=== PATIENT | male | born 1965 | race Hispanic/Latino ===

== ENCOUNTER 2020-08-05 09:19 | Emergency (ER) | payer OTHER ==
[~2020-08-05] VITALS: Ht 162.6 cm; Wt 65.0 kg
[2020-08-05] MEDS ORDERED: BP (10:07)
[2020-08-05] MEDS ORDERED: DIABETIC MED (10:08)
[2020-08-05] MEDS ORDERED: OFLOXACIN0.3 % OS (10:18)
[2020-08-05 10:30] VITALS: BP 131/77
== END 2020-08-05 10:30 | disposition home or self-care (01) | DRG 125 ==
LOC: ED 09:19
DX: S05.02XA Injury of conjunctiva and corneal abrasion without foreign body, left eye, initial encounter (principal); H11.32 Conjunctival hemorrhage, left eye; E11.9 Type 2 diabetes mellitus without complications; I10 Essential (primary) hypertension; X58.XXXA Exposure to other specified factors, initial encounter; Y99.0 Civilian activity done for income or pay